=== PATIENT | male | born 1960 | race Two or more races ===

== ENCOUNTER 2021-02-24 21:54 | Inpatient (IN) | payer MEDICARE, OTHER ==
[~2021-02-24] VITALS: Ht 177.8 cm; Wt 87.1 kg
--- NOTE | 2021-02-24 21:54 | NUR ---
JOSE 86 FROM HOME FOR C/O SOB. HAD 2L BLOOD TRANSFUSION IN AM AT [facility] D/T LOW HGB. LAST HD ON 02/22. USUAL HD DAYS ARE T, TH, SAT. PT A/OX4. NO EDEMA NOTED. CONNECTED PT TO TELE MONITOR AND POX. SAFETY MEASURES IN PLACE.
--- NOTE | 2021-02-24 22:06 | NUR ---
URINE SENT TO LAB
--- NOTE | 2021-02-24 22:14 | NUR ---
R XUAN #20G S/L; PATENT AND INTACT
--- NOTE | 2021-02-24 22:19 | NUR ---
CALLED FOR COVID SWAB
--- NOTE | 2021-02-24 22:22 | NUR ---
MRSA SWAB COLLECTED AND SENT TO LAB. PATIENT'S BELONGINGS LIST DONE.
--- NOTE | 2021-02-24 22:27 | NUR ---
COVID SWAB COLLECTED AND SENT TO LAB
[2021-02-24] MEDS ORDERED: DILT-4 PO (22:34)
[2021-02-24] MEDS ORDERED: [UNRECOGNIZED DRUG - OTHER] (22:34)
[2021-02-24] MEDS ORDERED: ESCI10TA PO (22:38)
[2021-02-24] MEDS ORDERED: ZOLP10TA2 PO (22:38)
[2021-02-24] MEDS ORDERED: ALPR0.25 PO ×2 (22:38)
[2021-02-24] MEDS ORDERED: JAKAFI PO (22:38)
[2021-02-24] MEDS ORDERED: CALC667C6 PO (22:38)
--- NOTE | 2021-02-24 22:38 | NUR ---
PT'S HOME MEDS PUT IN MED RECON
--- NOTE | 2021-02-24 22:50 | NUR ---
TRINA [phone] PROVIDE PT INFO: DR. SHANNON ODONNELL ONCOLOGY [phone]: [facility] [place] [facility] FOR PT'S MYOFIBROSIS DR. EVELIN NIEVES NEPHROLOG[facility] [phone]
--- NOTE | 2021-02-24 22:55 | NUR ---
STEMMING MACHINE OPERATOR AT PT'S BEDSIDE
--- NOTE | 2021-02-24 23:03 | NUR ---
TRINA WILL GO HOME TO BRING HOME MEDICATION LALO
--- NOTE | 2021-02-24 23:10 | NUR ---
PT TOLERATING O2 4-5LPM N/C AT 97%; TACHYPNIC RR 42. ENCOURAGED DEEP SLOW BREATHING. WILL CONTINUE TO REASSES PT.
[2021-02-24 23:15] LABS: RED BLOOD CELL COUNT(AUTO) 3.61 MIL/uL (4.5-6.0)
--- NOTE | 2021-02-24 23:18 | NUR ---
CN F/U WITH LAB FOR LAB RESULTS
[2021-02-24 23:19] LABS: BASOPHILS # (AUTO) 0.4 K/uL (0.0-0.2); BASOPHILS % (AUTO) 1.1 % (0.0-2.0); EOSINOPHILS % (AUTO) 5.7 % (0.0-6.0); HEMATOCRIT 35 % (39-51); HEMOGLOBIN 10.4 g/dL (13.5-17.5); LYMPHOCYTES # (AUTO) 1.8 K/uL (0.8-4.8); LYMPHOCYTES % (AUTO) 4.7 % (20.0-44.0); MEAN CORPUSCULAR HGB CONC 30 g/dl (31.0-36.0); MEAN CORPUSCULAR VOLUME 97 fL (80-96); MONOCYTES # (AUTO) 0.7 K/uL (0.1-1.30); MONOCYTES % (AUTO) 1.9 % (2.0-12.0); NEUTROPHILS # (AUTO) 32.2 K/uL (1.8-8.9); NEUTROPHILS % (AUTO) 86.6 % (43.0-81.0)
--- NOTE | 2021-02-24 23:23 | NUR ---
[facility] REPORTED PT TAKES EITHER RETOCRIT OR HEMOCRIT WITH DIALYSIS. WILL CLARIFY WITH DR. NIEVES NEPHROLOGY IN AM
[2021-02-24 23:29] LABS: WHITE BLOOD COUNT (AUTO) 37.3 K/uL (4.3-11.0)
--- NOTE | 2021-02-24 23:29 | NUR ---
PER LAB, WBC 37.3
[2021-02-24 23:30] LABS: ALANINE AMINOTRANSFERASE 24 U/L (12-78); ALBUMIN 2.7 g/dL (3.4-5.0); ALKALINE PHOSPHATASE 240 U/L (46-116); ASPARTATE AMINOTRANSFERASE 18 U/L (15-37); BILIRUBIN,DIRECT 0.2 mg/dL (0.0-0.2); BILIRUBIN,TOTAL 0.4 mg/dL (0.2-1.0); CALCIUM, SERUM 8.1 mg/dL (8.5-10.1); CARBON DIOXIDE 22 mmol/L (21-32); CHLORIDE 100 mmol/L (98-107); GLUCOSE 139 mg/dL (74-106); POTASSIUM 4.9 mmol/L (3.5-5.1); SODIUM SERUM 138 mmol/L (136-145); TOTAL PROTEIN, SERUM 7.9 g/dL (6.4-8.2); UREA NITROGEN, BLOOD 46 mg/dL (7-18)
[2021-02-24] MEDS ORDERED: VANCOMYCIN 1 GM in IV D5W 250 ML IV ONE (23:30)
[2021-02-24] MEDS ORDERED: CEFEPIME 1 GM in IV D5W 50 ML IV ONE (23:30)
--- NOTE | 2021-02-24 23:31 | NUR ---
CR 7.8
[2021-02-24 23:32] LABS: CREATININE 7.8 mg/dL (0.6-1.3)
[2021-02-24] MEDS ORDERED: CEFEPIME 1 GM VIAL ONE (23:33)
[2021-02-24] MEDS ORDERED: VANCOMYCIN 1 GM VIAL ONE (23:34)
[2021-02-25] MEDS ORDERED: ZOLPIDEM TARTRATE 5 MG TABLET PO PRN (00:30)
[2021-02-25] MEDS ORDERED: MAGNESIUM HYDROXIDE 30 ML UDC PO PRN (00:30)
[2021-02-25] MEDS ORDERED: Z GUARD REMEDY 2 OZ OINT TP PRN (00:30)
[2021-02-25] MEDS ORDERED: ACETAMINOPHEN 325 MG TABLET PO PRN (00:30)
[2021-02-25] MEDS ORDERED: MAG HYDROX/AL HYDROX/SIMETH 30 ML UDC PO PRN (00:30)
[2021-02-25] MEDS ORDERED: ONDANSETRON HCL/PF 4 MG/2 ML VIAL IVP PRN (00:30)
[2021-02-25] MEDS ORDERED: ALPRAZOLAM 0.25 MG TABLET PO PRN (01:00)
[2021-02-25] MEDS ORDERED: ALPRAZOLAM 0.25 MG TABLET PO SCH (01:00)
--- NOTE | 2021-02-25 01:01 | NUR ---
PER LAB, LACTIC ACID 2.8
--- NOTE | 2021-02-25 01:01 | NUR ---
ATTEMPTED TO GIVE REPORT, RN WITH PT
--- NOTE | 2021-02-25 01:23 | NUR ---
GAVE REPORT TO LEONIDES PAN FOR BRI
--- NOTE | 2021-02-25 01:35 | NUR ---
PT MOVED TO [facility] VIA ACLS PROTOCOL
--- NOTE | 2021-02-25 01:40 | NUR ---
FIRESTOP/CONTAINMENT WORKER, RECEIVED 68 YEAR OLD MALE ADMITTED FROM ER DEPARTMENT VIA STRETCHER ACCOMPANIED BY 2 NURSES, UNDER MEDICAL SERVICES OF DR MCDOWELL, WITH ADMITTING DX PNA/ESRD, PATIENT NOTED WITH SOB IN RESPIRATORY DISTRESS, WITH RR 44, BP 200/105, MULTIPLE READING LIKE THIS, PATIENT DIAPHORETIC, PATIENT ON 6LPM WITH O2 84-88% VIA NC FROM ER, PLACED PATIENT IN SIMPLE MASK, PATIENT CONTINUED WITH SOB/DISTRESS AND PATIENT PLACED ON NRM AT 15LPM, WITH O2 88-90% AT HIS TIME, ATTACHED TO TELE MONITOR PATIENT SINUS TACHY WITH BBB, AFEBRILE, SKIN INTACT, RIGHT HAND 20G, PATENT AND INTACT AND CARL FISTULA IN PLACED, NO ABNORMALITY NOTED AT SITE, WILL CONTINUW TO MONITOR CLOSELY, AND INFORM DR MCDOWELL ABOUT PATIENT'S CONDITION,
[2021-02-25 02:00] VITALS: BP 163/80
[2021-02-25 02:05] LABS: BAND % (MANUAL) 2 % (0.0-5.0); LYMPHOCYTES % (MANUAL) 3 % (16-48); METAMYELOCYTES % 2 % (0-0); MONOCYTES % (MANUAL) 3 % (0-11.0); NEUTROPHILS % (MANUAL) 89 (42-76); PROMYELOCYTES % 1 % (0-0)
[2021-02-25 02:11] LABS: PLATELET COUNT (AUTO) 583 K/uL (150-450)
[2021-02-25 02:44] LABS: ABG BASE EXCESS -7.3 mmol/L; ABG OXYGEN SATURATION 99.3 % (92.0-98.5); ABG PCO2 32.7 mmHg (35.0-45.0); ABG PH 7.345 (7.350-7.450); ABG PO2 195.6 mmHg (75.0-100.0); AaDO2 484.7 mmHg; COHb 0.2 % (0.5-1.5); MetHb 0.5 % (0.0-1.5); O2Hb 98.6 % (94.0-97.0); SITE, ABG Right Radial; VENT MODE, BG 100%NRB
[2021-02-25] MEDS ORDERED: CLONIDINE HCL 0.1 MG TABLET PO ONE (03:00)
--- NOTE | 2021-02-25 03:03 | NUR ---
RN NOTES, ABGS RESULTS DONE AND PAGED ANDONIAN TOWBOAT PILOT, THE PIPE FITTER SUPERVISOR MAINTENANCE WILL PAGE HIM, AWAITING FOR CALL BACK.
--- NOTE | 2021-02-25 03:40 | NUR ---
RN NOTES, UDAYN CALLED BACK AND IMFORMED PATIENT'S CONDITION, PATIENT RESP DISTRESS/SOB PER MD PATIENT NEED HD, THAT'S WHY PATIENT IN IN DISTRESS, AND HE WILL NOT ORDER DIURETICS AT THIS TIME, WILL CONTINUE TO MONITOR CLOSELY
--- NOTE | 2021-02-25 03:40 | NUR ---
called pharmacy to verified the order fro clonidine x one, awaiting for verification.
[2021-02-25 04:00] VITALS: BP 141/73
--- NOTE | 2021-02-25 04:20 | NUR ---
RN NOTES, ANDONIAN CALLED BACK AND REPORT ABGS RESULTS AND PER MD IF PATIENT CANNOT TOLERATE NC OR SIMPLE MASK, CONTINUE WITH NRM, PATIENT CANNOT TOLERATED NC/SIMPLE MASK AT THIS TIME, WILL CONT TO MONITOR.
[2021-02-25] MEDS ORDERED: CEFEPIME 2 GM in IV D5W 100 ML IV SCH (05:00)
[2021-02-25] MEDS ORDERED: CEFEPIME 1 GM VIAL ONE (05:04)
--- NOTE | 2021-02-25 06:09 | NUR ---
RN NOTES, PATIENT 100% O2 ON NRM 10L AT HIS TIME, SWITCHED TO NC AT 5LPM , WILL CONTINUE TO MONITOR AND CHECK THE O2 CLOSELY., NO DISTRESS, NO SOB AT THIS TIME.
--- NOTE | 2021-02-25 07:03 | NUR ---
RN NOTES, PATIENT ON 5LPM VIA NC, NO ACUTE DISTRESS NOTED AT THIS TIME, WILL ENDORSE CONTINUITY OF CARE TO ONCOMING NURSE.
[2021-02-25] MEDS ORDERED: VANCOMYCIN POST DIALYSIS 500MG IV PRN (07:30)
--- NOTE | 2021-02-25 07:49 | NUR ---
RN NOTES; RECEIVED PT IN BED IN SUPINE POS. PT A/OX4. PT ON 02 VIA NC AT 5LPM. NO SOB OR DISTRESS NOTED AT THIS TIME. PT HAS NO C/O PAIN. ALL SAFETY MEASURES RENDERED, BED LOCKED IN LOWEST POS. WITH CALL LIGHT WITHIN REACH.
[2021-02-25] MEDS: ESCITALOPRAM OXALATE (10 MG) 10 MG TABLET PO SCH (08:11)
[2021-02-25] MEDS: DILTIAZEM HCL CD 240 MG PO SCH (08:11)
[2021-02-25] MEDS: CALCIUM ACETATE 667 MG CAP/TAB PO SCH ×3 (08:11→16:04)
[2021-02-25] MEDS ORDERED: RUXOLITINIB 5 MG PO PRN (09:00)
--- NOTE | 2021-02-25 18:40 | NUR ---
RN CLOSING NOTES; PT A/OX4, AMBULATORY WITH ASSISTANCE. TOLERATING 02 WELL AT 6L SATING AT 96-98%. NO SOB OR DISTRESS NOTED. ALL MEDICATIONS GIVEN AND TOLERATED WELL. PT HAD DIALYSIS AND WAS ABLE TO REMOVE 3L OF FLUID. PT KEPT CLEAN, DRY, AND COMFORTABLE. ALL SAFETY MEASURES RENDERED AND WELL TOLERATED. BED IN LOWEST POS. LOCKED WITH CALL LIGHT WITHIN REACH. WILL ENDORSE TO ADJUNCT LATIN PROFESSOR RN. PT IN STABLE CONDITION. NO SIGNIFICANT CHANGES IN PT HEALTH STATUS DURING SHIFT.
--- NOTE | 2021-02-25 19:30 | NUR ---
RN NOTE RECEIVED PATIENT IN BED. A/OX4. ON OXYGEN 6L/MIN VIA NASAL CANNULA. RESPIRATIONS ARE EVEN AND UNLABORED. NO S/S SOB NOTED. NO C/O PAIN AT THIS TIME. EXTERNAL TELE MONITOR READS SINUS RHYTHM. IN NO APPARENT DISTRESS. IV ACCES IN RIGHT HAND #20 PATENT AND SALINE LOCKED,CARL FISTULA. BED IS LOW AND LOCKED, HOB ELEVATED IN HIGH FOWLERS, SIDE RAILS UP X2, CALL LIGHT WITHIN REACH.
[2021-02-25 20:00] VITALS: BP 133/69
[2021-02-25] MEDS: ZOLPIDEM TARTRATE 10 MG TABLET PO SCH (22:25)
[2021-02-25] MEDS: CEFEPIME 1 GM in IV D5W 50 ML IV SCH (22:25)
[2021-02-26 04:00] VITALS: BP 142/76
--- NOTE | 2021-02-26 06:20 | NUR ---
RN NOTE PATIENT RSTING IN BED. A/OX4. REMAINS ON OXYGEN 6L/MIN VIA NASAL CANNULA. NO SOB , NO PAIN. NO DISTRESS. TELE MONITOR READS SINUS RHYTHM. RIGHT HAND #20SALINE LOCKED,CARL FISTULA. BED REMAINS LOW AND LOCKED, HOB ELEVATED IN HIGH FOWLERS, SIDE RAILS UP X2, CALL LIGHT WITHIN REACH. WILL ENDORSE TO ONCOMING SHIFT.
--- NOTE | 2021-02-26 07:30 | NUR ---
OPHTHALMOLOGIST OPENING NOTE RECEIVED PT A/O X4 RESTING COMFORTABLY IN BED ON 6L NC WITH NO S/SX OF ACUTE RESPIRATORY DISTRESS. PT HAS A CARL AV FISTULA AND RIGH HAND 20G FLUSHED, PATENT WITH DRESSING IN TACT. PT IS ABLE TO MAKE NEEDS KNOWN. SAFETY MEASURES IN PLACE WITH BED IN LOWEST LOCKED POSITION, SIDE RAILS UP X2, AND CALL LIGHT WITHIN REACH.
[2021-02-26 08:00] VITALS: BP_SYST 137; BP_SYST 166; BP_DIAS 62; BP_DIAS 80
[2021-02-26 09:29] LABS: CALCIUM, SERUM 8.8 mg/dL (8.5-10.1); MAGNESIUM 2.9 mg/dL (1.8-2.4); POTASSIUM 5.2 mmol/L (3.5-5.1)
[2021-02-26] MEDS: ESCITALOPRAM OXALATE (10 MG) 10 MG TABLET PO SCH (09:32)
[2021-02-26] MEDS: CALCIUM ACETATE 667 MG CAP/TAB PO SCH ×3 (09:32→16:32)
[2021-02-26] MEDS: DILTIAZEM HCL CD 240 MG PO SCH (09:32)
[2021-02-26 09:34] LABS: CREATININE 7.9 mg/dL (0.6-1.3)
[2021-02-26 09:35] LABS: PHOSPHORUS 8.9 mg/dL (2.5-4.9)
[2021-02-26 09:36] LABS: BASOPHILS # (AUTO) 0.1 K/uL (0.0-0.2); BASOPHILS % (AUTO) 0.5 % (0.0-2.0); EOSINOPHILS % (AUTO) 1.2 % (0.0-6.0); HEMATOCRIT 32 % (39-51); HEMOGLOBIN 9.5 g/dL (13.5-17.5); LYMPHOCYTES # (AUTO) 2.8 K/uL (0.8-4.8); LYMPHOCYTES % (AUTO) 8.7 % (20.0-44.0); MEAN CORPUSCULAR HGB CONC 30 g/dl (31.0-36.0); MEAN CORPUSCULAR VOLUME 96 fL (80-96); MONOCYTES # (AUTO) 0.6 K/uL (0.1-1.30); NEUTROPHILS # (AUTO) 27.7 K/uL (1.8-8.9); NEUTROPHILS % (AUTO) 87.6 % (43.0-81.0); PLATELET COUNT (AUTO) 505 K/uL (150-450); RED BLOOD CELL COUNT(AUTO) 3.29 MIL/uL (4.5-6.0)
[2021-02-26 09:43] LABS: WHITE BLOOD COUNT (AUTO) 31.7 K/uL (4.3-11.0)
[2021-02-26 11:57] LABS: BAND % (MANUAL) 3 % (0.0-5.0); EOSINOPHILS % (MANUAL) 3 % (0-4); LYMPHOCYTES % (MANUAL) 1 % (16-48); METAMYELOCYTES % 1 % (0-0); MONOCYTES % (MANUAL) 1 % (0-11.0); NEUTROPHILS % (MANUAL) 90 (42-76); PROMYELOCYTES % 1 % (0-0)
[2021-02-26 12:00] VITALS: BP 127/52
[2021-02-26 16:00] VITALS: BP 127/75
--- NOTE | 2021-02-26 19:00 | NUR ---
CORPORATE DIRECTOR OF PHARMACY CLOSING NOTE PT RECEIVING HEMODIALYSIS THROUGH CARL AV FISTULA. PT AWAITING LAB DRAW FOR VANCO TROUGH. ENDORSE TO NEXT SHIFT. PT O2 TITRATED TO 4L NC PER MD. SAFETY MEASURES IN PLACE WITH BED IN LOWEST LOCKED POSITION, CALL LIGHT WITHIN REACH AND ALL NEEDS ATTENDED AT THIS TIME.
--- NOTE | 2021-02-26 19:30 | NUR ---
RN OPENING NOTE RECEIVED PATIENT IN BED. A/OX4. ON OXYGEN 5L/MIN VIA NASAL CANNULA. RESPIRATIONS ARE EVEN AND UNLABORED. NO S/SS OB . NO C/O PAIN. EXTERNAL TELE MONITOR READS SINUS RHYTHM. IN NO APPARENT DISTRESS. CURRENTLY RECEIVING HD. RIGHT HAND PATENT AND SALINE LOCKED. BED IS LOW AND LOCKED, HOB ELEVATED IN HIGH FOWLERS, SIDE RIALS UPX2, CALL LIGHT WITHIN REACH.
[2021-02-26 20:00] VITALS: BP 163/73
--- NOTE | 2021-02-26 20:15 | NUR ---
RN NOTE SPOKE WITH PHARMACY TO INFORM THEM PATENT IS CURRENTLY GETTING HD, RANDOM VANCO WAS DRAWN AND LESS THAN 20. NO VANCO IN [place] FOR POST HD. PHARMACY WILL DELIVER.
--- NOTE | 2021-02-26 20:36 | NUR ---
RN NOTE PER SENIOR ENERGY CONSULTANT, GERALDO, SPOKE WITH CARY AND RECEIVED ORDER FOR POST BUN. LAB ORDERED AND CALLED LAB TO DRAW BLOOD.
--- NOTE | 2021-02-26 21:12 | NUR ---
RN NOTE HD RN COMPLETED DIALYSIS. REMOVED 3L.
[2021-02-26] MEDS: ZOLPIDEM TARTRATE 10 MG TABLET PO SCH (21:48)
--- NOTE | 2021-02-26 22:05 | NUR ---
RN NOTE PATIENT CONCERNED ABOUT TAKING HIS NIGHTLY MEDICATION JAKAFI 10MG. I CHECKED THE OMNI CELLS ON THE UNIT WHICH WE DO NOT CARRY. I CHECKED THE PATIENTS INDIVIDUAL CASSETTE AND THERE WAS NONE AVAILABLE. INFORMED AND APOLOGIZED TO PATIENT.
--- NOTE | 2021-02-26 22:25 | NUR ---
RN NOTE SPOKE WITH PATIENTS , SHE VERBALIZED SHE IS VERY UPSET THAT PATIENT HAS NOT RECEIVED HIS MEDICATION, JAKAFI FOR 2 NIGHTS. ASKED IF THE PATIENT IS SUPPOSED TO RECEIVE AFTER DIALYSIS SEEN ON EMAR BUT SHE STATED IT IS TO BE TAKEN NIGHTLY, QHS. AWARE OF SITUATION. WILL CALL IN AM TO SPEAK WITH PHARMACY AND FILE COMPLIANT. Addendum: 02/26/21 at 4944 by ROSA RUSSELL RN ALSO INFORMED ME THAT WHEN PATIENT DOES NOT TAKE THIS MEDICATION HIS TEMPERATURE WILL GO UP. AND THEY DONT KNOW IF IT IS BECAUSE THE MISSED MEDICATION OR BECAUSE OF ANOTHER SOURCE. RN ASSISTANT PROFESSOR OF GERMAN MARY AWARE OF MISSED MEDICATION AND CHARGE NURSE AWARE
[2021-02-26] MEDS: CEFEPIME 1 GM in IV D5W 50 ML IV SCH (23:03)
[2021-02-27] VITALS: BP 149/84
[2021-02-27 04:00] VITALS: BP 142/67
--- NOTE | 2021-02-27 06:19 | NUR ---
RN CLOSING NOTE PATIENT RESTING IN BED. A/OX4. REMAINS ON OXYGEN 5L/MIN VIA NASAL CANNULA. NO SOB. NO PAIN. TELE MONITOR IS SINUS RHYTHM. NO DISTRESS. RIGHT HAND #20 INTACT. BED REMAINS LOW AND LOCKED, HOB ELEVATED IN HIGH FOWLERS, SIDE RIALS UPX2, CALL LIGHT WITHIN REACH. WILL ENDORSE TO ONCOMING SHIFT.
[2021-02-27 07:03] LABS: CALCIUM, SERUM 8.5 mg/dL (8.5-10.1); CREATININE 6.1 mg/dL (0.6-1.3); POTASSIUM 4.3 mmol/L (3.5-5.1)
[2021-02-27 08:00] VITALS: BP 144/69
[2021-02-27] MEDS: DILTIAZEM HCL CD 240 MG PO SCH (09:24)
[2021-02-27] MEDS: CALCIUM ACETATE 667 MG CAP/TAB PO SCH ×2 (09:24→13:15)
[2021-02-27] MEDS: ESCITALOPRAM OXALATE (10 MG) 10 MG TABLET PO SCH (09:24)
--- NOTE | 2021-02-27 10:38 | NUR ---
RN NOTE CALLED PHARMACY REGARDING MEDICATION JAKAFI 10MG POST DIALYSIS. THEY BRING TO THE PT CASSETTE
[2021-02-27] MEDS ORDERED: LEVO500T90 PO (10:43)
--- NOTE | 2021-02-27 11:45 | NUR ---
RN NOTE PT HAS 99.9 TEMPERATURE. PRN TYLENOL GIVEN AND COOLING MEASURES IN PLACE.
[2021-02-27 12:00] VITALS: BP 131/70
--- NOTE | 2021-02-27 13:16 | NUR ---
RN NOTE PT CLEARED FOR DISCHARGE. IV ACCESS REMOVED, BELONGINGS LIST SIGNED, DISCHARGE INSTRUCTIONS GIVEN. PT REQUEST MEDICAL RECORDS SENT TO COPY CAMERA OPERATOR, ANH ODONNELL.
== END 2021-02-27 14:28 | disposition home or self-care (01) | DRG 871 ==
LOC: ER 21:57 → TELE1 02-25 00:55
PROVIDERS: ADMIT Nurse Practitioner Acute Care; ATTEND Nurse Practitioner Acute Care
PROC: 5A1D70Z Performance of Urinary Filtration, Intermittent, Less than 6 Hours Per Day (ICD-10-PCS; principal; 2021-02-25)
DX: A41.9 Sepsis, unspecified organism (principal); J96.01 Acute respiratory failure with hypoxia; N18.6 End stage renal disease; J15.6 Pneumonia due to other Gram-negative bacteria; J15.9 Unspecified bacterial pneumonia; I12.0 Hypertensive chronic kidney disease with stage 5 chronic kidney disease or end stage renal disease; E87.2 Acidosis; D75.81 Myelofibrosis; J81.1 Chronic pulmonary edema; C94.6 Myelodysplastic disease, not elsewhere classified; E87.70 Fluid overload, unspecified; I45.10 Unspecified right bundle-branch block; Z20.822 Contact with and (suspected) exposure to COVID-19; Z86.16 Personal history of COVID-19; Z90.81 Acquired absence of spleen; Z99.2 Dependence on renal dialysis; Z88.1 Allergy status to other antibiotic agents; Z88.8 Allergy status to other drugs, medicaments and biological substances; Z79.899 Other long term (current) drug therapy; E87.71 Transfusion associated circulatory overload; F32.A Depression, unspecified; D75.839 Thrombocytosis, unspecified; E66.9 Obesity, unspecified; Z68.28 Body mass index [BMI] 28.0-28.9, adult; E83.39 Other disorders of phosphorus metabolism
CPT/HCPCS: 36415; 36600; 71045-TC; 80048-TC; 80076-TC; 80202-TC; 82803-TC; 83605-TC; 83735-TC; 83880; 84100-TC; 84484-TC; 84520-TC; 85025-TC; 85730-TC; 86706; 87081-TC; 87340; 90935-TC; A6403; C9803; G0378; J0692; J3370; J7030; J7050; J7060; U0003